=== PATIENT | male | born 1930 | race Caucasian/White ===

== ENCOUNTER 2017-09-15 05:27 | Observation (INO) | payer MEDICARE, BC ==
[2017-09-15] MEDS ORDERED: Nitroglycerin 2% Ointment 1 INCH/1 GM Packet ONE (05:53)
[2017-09-15 05:55] LABS: #Basophils 0.1 thou/uL (0.0-0.2); #Eosinphils 0.3 thou/uL (0.0-0.7); #Lymphocytes 2.1 thou/uL (1.20-3.40); #Monocytes 0.7 thou/uL (0.11-0.59); #Neutrophils 3.5 thou/uL (1.40-6.50); %Eosinophils 4.4 % (0.0-10.0); %Lymphocytes 31.3 % (21.0-51.0); %Monocytes 10.2 % (0.0-10.0); %Neutrophils 53.1 % (42.0-75.0); Hemoglobin 9.9 g/dL (14.0-18.0); Mean Corpuscular Hemoglobin 26.3 pg (27.0-31.0); Mean Platelet Volume 7.1 fL (7.4-10.4); Platelet Count 184 thou/uL (130-400); Red Blood Cell (RBC) Count 3.76 mill/uL (4.70-6.10); White Blood Cell (WBC) Count 6.6 thou/uL (4.8-10.8)
[2017-09-15 06:08] LABS: ALT (SGPT) 12 U/L (8-55); AST (SGOT) 12 U/L (5-34); Albumin 3.5 g/dL (3.4-4.8); Alkaline Phosphatase 95 U/L (40-150); Anion Gap 14 mmol/L (10-20); BUN (Urea Nitrogen) 23 mg/dL (8.4-25.7); Bilirubin, Total 0.3 mg/dL (0.2-1.2); CK (CPK) 41 U/L (30-200); Calc. Creatinine Clearance 0 mL/min (70-130); Calcium 8.9 mg/dL (7.8-10.44); Carbon Dioxide 22 mmol/L (23-31); Chloride 112 mmol/L (98-107); Estimated GFR-MDRD 54; Globulin 2.9 g/dL (2.4-3.5); Glucose 82 mg/dL (83-110); Potassium 4.3 mmol/L (3.5-5.1); Protein, Total 6.4 g/dL (5.8-8.1); Sodium 144 mmol/L (136-145)
[2017-09-15 06:10] LABS: CKMB 1.8 ng/mL (0-6.6); Troponin I 0.017 ng/mL (< 0.028)
--- NOTE | 2017-09-15 08:05 | RAD ---
RADIOGRAPH CHEST 1 VIEW: Date: 09/15/17. Time: 6:06 A.M. HISTORY: An 87-year-old male with acute chest pain. COMPARISON: 09/05/15. FINDINGS: Mild or borderline cardiomegaly. Prominent interstitial markings diffusely, apparently new since the prior study. No consolidation or pneumothorax. IMPRESSION: Prominent interstitial markings. JN [] POS: OFF
[2017-09-15 08:07] VITALS: BMI 24.6
[2017-09-15] MEDS ORDERED: ADENOSINE 60 MG/20 ML VIAL ONE (08:15)
[2017-09-15] MEDS ORDERED: Acetaminophen 325 MG TAB PO PRN (08:24)
[2017-09-15 09:22] LABS: Cardiac Risk 2.7 (Less than 4.5)
[2017-09-15 09:27] LABS: Troponin I 0.017 ng/mL (< 0.028)
[2017-09-15] MEDS ORDERED: cloNIDine 0.1 MG TAB PO PRN (10:51)
[2017-09-15] MEDS ORDERED: Ondansetron ODT 4 MG TAB PO PRN (10:51)
[2017-09-15] MEDS ORDERED: hydrALAZINE 20 MG/ML VIAL SLOW IVP PRN (10:51)
[2017-09-15] MEDS ORDERED: HumaLOG 300 UNITS/3 ML VIAL SC PRN ×2 (10:51)
[2017-09-15] MEDS ORDERED: Ondansetron HCl/PF 4 MG/2 ML Vial IVP PRN (10:51)
[2017-09-15] MEDS ORDERED: Dextrose 50% Abboject 50 ML SYRINGE SLOW IVP PRN (10:51)
[2017-09-15] MEDS ORDERED: Dextrose 5% in Water 1,000 ML IV PRN (10:51)
[2017-09-15] MEDS ORDERED: Acetaminophen 500 MG TAB PO PRN (10:51)
[2017-09-15] MEDS ORDERED: Nitroglycerin 2% Ointment 1 INCH/1 GM Packet TOP SCH (14:00)
--- NOTE | 2017-09-15 14:23 | HP ---
DATE OF ADMISSION: 09/15/2017 PRIMARY CARE PROVIDER: Dr. Anton Rivera. CHIEF COMPLAINT: Right-sided chest pain. HISTORY OF PRESENT ILLNESS: This is an 87-year-old male who presented to [facility] [place] [facility] complaining of right lower chest pain approximately occurring on 2 separate episodes lasting a few seconds and resolving spontaneously. The patient states the most recent epis ode occurred approximately 4:00 a.m., waking him up from sleep on the right lower chest and rib area. The patient denied any recent trauma, injury, increased cough, congestion, fever, change to bowel h abits or recent procedures. The patient became concerned when this lasted for 1-2 hours chewing 4 ba by aspirin and presented to the emergency room for evaluation. The patient became concerned when he states he had similar symptoms approximately 3-4 years prior to this evaluation at which point he und erwent cardiac evaluation and subsequent cardiac stent placement. The patient states he has been doi ng well at home, taking his routine chronic medications with a recent addition of gabapentin for nerv e pain and low back discomfort. The patient states he has been evaluated at [facility] and placed on a variety of medication regimens mostly unsuccessful. The patient states he star tad the gabapentin within the last 24 hours and noticed the pain in his right lower ribcage as stated previously. The patient states he remains very active in his home residence with daily chores and f arming duties. In the emergency room, patient underwent general evaluation with chest imaging showin g no acute infiltrate. Screening metabolic survey showed troponin negative x2 and patient was placed on topical nitroglycerin and given aspirin 324 mg. The patient currently without chest pain symptom s. PAST MEDICAL HISTORY: 1. Coronary artery disease to left anterior descending, status post cardiac stent placement in 2013. 2. History of atrial fibrillation with current sinus mechanism. 3. Right carotid artery stenosis. 4. Dyslipidemia. 5. Hypertension. 6. Diabetes mellitus type 2. 7. History of squamous cell carcinoma, status post surgical resection. PAST SURGICAL HISTORY: 1. Status post right facial surgery for squamous cell carcinoma. 2. Status post right carotid endarterectomy. 3. Status post cardiac catheterization with drug-eluting stent placement in 2014. 4. Status post right shoulder surgery. CURRENT MEDICATIONS: 1. Aspirin 325 mg 1 tablet p.o. at bedtime. 2. Lipitor 40 mg p.o. at bedtime. 3. Coreg 3.125 mg p.o. b.i.d. 4. Multaq 400 mg p.o. b.i.d. 5. Glipizide XL 2.5 mg p.o. at bedtime. 6. Lisinopril 2.5 mg p.o. at bedtime. 7. Metformin 1000 mg p.o. b.i.d. ALLERGIES: No known drug allergies. FAMILY HISTORY: Positive for coronary artery disease in multiple family members. SOCIAL HISTORY: Patient is , accompanied by his in the hospital. Resides near [place], [place]. No current alcohol, tobacco or illicit drug use. Works on his farm currently. REVIEW OF SYSTEMS: The following complete review of systems was negative, unless otherwise mentioned in the HPI or below: Constitutional: Weight loss or gain, ability to conduct usual activities. Skin: Rash, itching. Eyes: Double vision, pain. ENT/Mouth: Nose bleeding, neck stiffness, pain, tenderness. Cardiovascular: Palpitations, dyspnea on exertion, orthopnea. Respiratory: Shortness of breath, wheezing, cough, hemoptysis, fever or night sweats. Gastrointestinal: Poor appetite, abdominal pain, heartburn, nausea, vomiting, constipation, or diarr hea. Genitourinary: Urgency, frequency, dysuria, nocturia. Musculoskeletal: Pain, swelling. Neurologic/Psychiatric: Anxiety, depression. Allergy/Immunologic: Skin rash, bleeding tendency. Otherwise negative except as stated per HPI. PHYSICAL EXAMINATION: VITAL SIGNS: On admission, blood pressure 132/63, pulse 56, respiratory rate 17, temperature 97.4 de grees Fahrenheit, O2 saturation 93% on room air. GENERAL APPEARANCE: This is an 87-year-old male, alert and oriented x3, pleasant and in no acute distress. HEENT: Pupils are equal, round, and reactive to light and accommodation. Extraocular muscles are in tact. No scleral icterus, no conjunctival injection. Nares patent. OP is clear. NECK: Supple, no cervical adenopathy, no thyromegaly, no carotid bruits, no JVD appreciated. Cervic al spine with full active and passive range of motion. No meningeal signs appreciated. CHEST: Lungs are clear to auscultation bilaterally. CARDIOVASCULAR: S1 and S2 with a harsh holosystolic 2-3/6 murmur loudest at the apex. ABDOMEN: Rounded, soft, nontender, nondistended. Bowel sounds are positive in all four quadrants. No hepatosplenomegaly, no abdominal bruits, no rebound or guarding appreciated. EXTREMITIES: Warm and dry with good turgor. No clubbing, cyanosis or asymmetric edema appreciated. Pulses palpable distally at the dorsalis pedis, posterior tibial and popliteal arteries bilaterally. Capillary refill less than 2 seconds. NEUROLOGIC: Cranial nerves II-XII are grossly intact. No focal or lateralizing signs appreciated. PERTINENT LABORATORY DATA AND X-RAY FINDINGS: Sodium 144, potassium 4.3, chloride 112, CO2 of 22, BU N 23, creatinine 1.26 with estimated GFR of 54, glucose 82, calcium 8.9. LFTs within normal limits. Troponin I negative x2. Albumin 3.5, total cholesterol 94, triglycerides 43, HDL 35, LDL 50, lipase 39. CBC showed white blood cell count 6.6, hemoglobin 10, hematocrit 31, and platelet count of 184 with normal differential. Portable chest x-ray dated 09/15/2017 showed interstitial prominence witho ut acute infiltrate. EKG dated 09/15/2017 by my interpretation shows sinus mechanism with heart rate s in the 60s. Normal R-wave progression noted in the precordial leads. Voltage criteria consistent with left ventricular hypertrophy. Repolarization changes noted in lead V5, V6 and lead [address] No [address]-T wave changes appreciated. ASSESSMENT AND PLAN: 1. Chest pain. Questionable cardiac etiology given right-sided chest pain. We will proceed with Ca rdiolite stress testing to rule out ischemia. Continue aspirin 325 mg p.o. daily. Continue telemetr y monitoring, rule out arrhythmia. 2. Chronic kidney disease stage 3. Avoid nephrotoxic agents and contrast media. Hold metformin and glipizide. Repeat creatinine in the a.m. 3. Hypertension. Resume home regimen to include carvedilol 3.125 mg p.o. b.i.d. after obtaining Car diolite stress testing. 4. Diabetes mellitus type 2, stable currently. Insulin sliding scale for reflexive coverage. Hold glipizide and metformin until taking consistent p.o. intake. 5. Chronic normocytic anemia. Stable. Review of electronic medical record shows similar trend over the last 2 years. No current evidence to suggest acute blood loss. Repeat CBC in the a.m. 6. Prophylaxis. Sequential compression devices while in bed. Pepcid 20 mg p.o. b.i.d. 7. Code status is FULL. Surrogate medical decision maker is patient's spouse.
[2017-09-15 16:52] VITALS: BP 137/63; TEMP 97.7
[2017-09-15] MEDS ORDERED: Dronedarone HCl 400 MG TAB PO SCH (17:00)
--- NOTE | 2017-09-15 17:25 | NM ---
NUCLEAR MEDICINE CARDIAC PERFUSION EXAMINATION WITH EJECTION FRACTION 09/15/17 HISTORY: 87-year-old male with chest pain and history of coronary artery disease. COMPARISON: 09/06/15 TECHNIQUE: A two day nuclear medicine cardiac perfusion examination was performed. Rest images were obtained usi ng 11 millicuries of technetium 99m Sestamibi. Stress images were obtained using 27 millicuries of te chnetium 99m Sestamibi and adenosine. FINDINGS: Tomographic images show no fixed or reversible perfusion defects. Gaited images show normal wall jesse on with ejection fraction of 61%. EDV is 96 mL. LHR is 0.8. TID is 1.2. IMPRESSION: No evidence of ischemia. POS: [facility]
[2017-09-15] MEDS ORDERED: Atorvastatin Calcium 40 MG TAB PO SCH (21:00)
[2017-09-15] MEDS ORDERED: Lisinopril 2.5 MG TAB PO SCH (21:00)
--- NOTE | 2017-09-16 01:27 | DIS ---
DATE OF ADMISSION: 09/15/2017 DATE OF DISCHARGE: 09/15/2017 DISCHARGE DIAGNOSES: 1. Chest wall pain, non-cardiac. 2. Chronic kidney disease, stage 3, stable. 3. Hypertension, stable. 4. Diabetes mellitus type 2, on oral hypoglycemic, stable. 5. Chronic normocytic anemia, stable. CONSULTATIONS: None. PERTINENT LABORATORY AND X-RAY FINDINGS: Creatinine 1.26 with estimated GFR of 54. LFTs are within normal limits. Troponin I negative x2. Total cholesterol 94, triglycerides 43, HDL 35, LDL 50, lipa se 39. CBC showed hemoglobin of 10, hematocrit 31, platelet count 184. Portable chest x-ray dated 0 09/15/2017 showed no acute cardiopulmonary process. Cardiolite stress test dated 09/15/2017 showed no evidence of reversible or fixed ischemia with calculated ejection fraction of 61%. HOSPITAL COURSE: The patient was observed on the telemetry unit after initial presentation for right -sided chest wall pain. The patient underwent a general cardiac workup including serial troponin I n egative x2. The patient proceeded with Cardiolite stress testing showing no evidence for reversible or fixed ischemia with calculated ejection fraction of 61%. The patient overall remained clinically stable through the remainder the hospital course with telemetry monitoring showing no evidence of acu te arrhythmia or dysrhythmia. The patient is clinically stable and ready for discharge on 09/15/2017 . DISCHARGE MEDICATIONS: 1. Aspirin 325 mg 1 tablet p.o. at bedtime. 2. Lipitor 40 mg p.o. at bedtime. 3. Coreg 3.125 mg p.o. b.i.d. 4. Multaq 400 mg p.o. b.i.d. 5. Glucotrol-XL 2.5 mg p.o. at bedtime. 6. Lisinopril 2.5 mg p.o. at bedtime. 7. Metformin 1000 mg p.o. b.i.d. 8. Avodart 0.5 mg daily. FOLLOWUP: The patient may follow up with his primary care provider, Dr. Anton Rivera within 7 days of discharge. CONDITION ON DISCHARGE: Stable. ACTIVITY: Ad laurita. DIET: Heart healthy and ADA. CODE STATUS: FULL. DISPOSITION: Home on 09/15/2017.
[2017-09-16] MEDS ORDERED: Famotidine 20 MG TAB PO SCH (09:00)
[2017-09-16] MEDS ORDERED: Aspirin 325 mg Enteric Coated Tablet PO SCH (09:00)
[2017-09-16] MEDS ORDERED: Aspirin 325 MG TAB PO SCH (09:00)
--- NOTE | 2017-10-14 15:29 | EKG ---
Test Reason : Blood Pressure : / mmHG Vent. Rate : 064 BPM Atrial Rate : 064 BPM P-R Int : 190 ms QRS Dur : 086 ms QT Int : 392 ms P-R-T Axes : 045 -24 121 degrees QTc Int : 404 ms Normal sinus rhythm Left ventricular hypertrophy with repolarization abnormality Abnormal ECG Confirmed by VIVIANA MURPHY, CALVIN ([id number]), market editor BRIGITTE OROZCO ([id number]) on 10/14/2017 3:29:08 PM Referred By: Confirmed By:CALVIN MICHELLE MD
--- NOTE | 2017-12-15 21:07 | STRESS ---
Acquisition Time: 2017-09-15 15:02:15 Total Exercise Time: 00:04:00 Test Indications: CHEST PAIN Medications: Protocol: ADENOSINE Max HR: 085 BPM 63% of Pred: 133 BPM Max BP: 140/060 mmHG Max Work Load: 1.0 METS RESTING ECG: SINUS BRADYCARDIA AT [address]PM WITH NON-SPECIFIC ST SEGMENT AND T-WAVE CHANGES SYMPTOMS: NONE NORMAL BP RESPONSE ECTOPY: NONE ECG STRESS: NO SIGNIFICANT CHANGES INTERPRETATION: INDETERMINATE ECG/AWAIT NUCLEAR IMAGES FOR DEFINITIVE DIAGNOSIS Confirmed by SHEREEN GUEVARA MD ([id number]) on 12/15/2017 9:06:46 PM Referred By: MD Meagan KINGSLEY Confirmed By:SHEREEN GUEVARA MD
== END 2017-09-15 19:11 | disposition home or self-care (01) ==
LOC: SCSER 05:27 → 2SW 07:50
PROVIDERS: ADMIT Internal Medicine; ATTEND Internal Medicine
DX: R07.89 Other chest pain (principal); E11.22 Type 2 diabetes mellitus with diabetic chronic kidney disease; I12.9 Hypertensive chronic kidney disease with stage 1 through stage 4 chronic kidney disease, or unspecified chronic kidney disease; N18.3 Chronic kidney disease, stage 3 (moderate); D64.9 Anemia, unspecified; I25.10 Atherosclerotic heart disease of native coronary artery without angina pectoris; I48.91 Unspecified atrial fibrillation; E78.5 Hyperlipidemia, unspecified; Z79.84 Long term (current) use of oral hypoglycemic drugs; Z79.82 Long term (current) use of aspirin; Z79.899 Other long term (current) drug therapy; Z98.890 Other specified postprocedural states; Z87.891 Personal history of nicotine dependence
CPT/HCPCS: 71045; 78452; 80053; 80061; 82550; 82553; 82962; 83690; 84484 ×2; 85025; 93005; 93017; 99285; A9500; G0378; 36415; 36416; J0153

== ENCOUNTER 2017-09-24 12:32 | Emergency (ER) | payer MEDICARE, BC ==
[2017-09-24 13:04] LABS: #Basophils 0.1 thou/uL (0.0-0.2); #Eosinphils 0.4 thou/uL (0.0-0.7); #Lymphocytes 1.7 thou/uL (1.20-3.40); #Monocytes 0.7 thou/uL (0.11-0.59); #Neutrophils 4.6 thou/uL (1.40-6.50); %Basophils 0.9 % (0.0-1.0); %Lymphocytes 22.5 % (21.0-51.0); %Monocytes 9.1 % (0.0-10.0); %Neutrophils 62.4 % (42.0-75.0); Hemoglobin 9.1 g/dL (14.0-18.0); Mean Corpuscular HGB CONC 31.5 g/dL (32.0-36.0); Mean Corpuscular Hemoglobin 25.6 pg (27.0-31.0); Mean Platelet Volume 7.4 fL (7.4-10.4); Platelet Count 188 thou/uL (130-400); RBC Distribution Width 14.1 % (11.5-14.5); Red Blood Cell (RBC) Count 3.56 mill/uL (4.70-6.10); White Blood Cell (WBC) Count 7.4 thou/uL (4.8-10.8)
[2017-09-24] MEDS ORDERED: Albuterol Sulfate 2.5 mg/0.5 ml Neb ONE (13:18)
[2017-09-24 13:22] LABS: ALT (SGPT) 14 U/L (8-55); AST (SGOT) 13 U/L (5-34); Albumin 3.6 g/dL (3.4-4.8); Alkaline Phosphatase 81 U/L (40-150); Anion Gap 14 mmol/L (10-20); BUN (Urea Nitrogen) 15 mg/dL (8.4-25.7); Bilirubin, Total 0.4 mg/dL (0.2-1.2); CK (CPK) 41 U/L (30-200); Calc. Creatinine Clearance 0 mL/min (70-130); Calcium 8.7 mg/dL (7.8-10.44); Carbon Dioxide 23 mmol/L (23-31); Chloride 109 mmol/L (98-107); Estimated GFR-MDRD 60; Globulin 2.8 g/dL (2.4-3.5); Glucose 131 mg/dL (83-110); Potassium 4.4 mmol/L (3.5-5.1); Protein, Total 6.4 g/dL (5.8-8.1); Sodium 142 mmol/L (136-145)
[2017-09-24 13:23] LABS: Troponin I Less than 0.010 ng/mL (< 0.028)
--- NOTE | 2017-09-24 14:55 | CT ---
CTA OF THE CHEST WITH CONTRAST: Comparison: 07-20-14 History: Shortness of breath, dyspnea on exertion. Technique: Multiple contiguous axial images were obtained in a CT of the chest with contrast per pul onary embolism protocol. 3D oblique MIP reformats and direct coronal reformats were performed. FINDINGS: The pulmonary arteries are well opacified without filling defect to suggest pulmonary emboli. The hea rt is normal in size without focal cardiac abnormality. Calcifications are seen in the coronary arter ies and aorta. No hilar or mediastinal lymphadenopathy are seen. No pneumothorax or pleural effusion are seen. No focal infiltrates are seen in the lungs. Mild atelec tasis is seen in the lung bases. No suspicious pulmonary nodule is seen. The visualized subdiaphragmatic structures are unremarkable. Degenerative changes are seen in the spi ne. The chest wall soft tissues are unremarkable. IMPRESSION: No evidence of pulmonary thromboembolism. POS: [facility]
== END 2017-09-24 15:06 | disposition home or self-care (01) ==
LOC: SCSER 12:32
DX: D64.9 Anemia, unspecified (principal); R06.09 Other forms of dyspnea; I48.91 Unspecified atrial fibrillation; E11.9 Type 2 diabetes mellitus without complications; E78.5 Hyperlipidemia, unspecified; Z79.899 Other long term (current) drug therapy; Z79.84 Long term (current) use of oral hypoglycemic drugs
CPT/HCPCS: 71275; 80053; 82274; 82553; 83880; 84484; 85025; 93005; J7611

== ENCOUNTER 2018-04-26 12:37 | Outpatient (CLI) | payer MEDICARE, BC ==
--- NOTE | 2018-04-26 15:38 | MRI ---
MRI OF LUMBAR SPINE WITHOUT CONTRAST 04/26/18 HISTORY: Lumbar disc degeneration. Three years of low back pain. COMPARISON: None. TECHNIQUE: MRI of lumbar spine is performed without intravenous gadolinium administration. Multisequential, mult iplanar imaging is performed. FINDINGS: Appropriate T1 marrow signal intensity of the lumbar vertebrae. Slight heterogeneity suggests senesce nt change. Vertebral body height is maintained. No fracture. No significant STIR hyperintensity to liao ggest vertebral body edema or ligamentous injury. Symmetric signal intensity of the psoas muscles. Appropriate signal intensity of the visualized solid organs. The conus medullaris terminates at the T12-L1 disc space level. T12-L1: Adequate disc hydration. No significant central canal stenosis or foraminal narrowing. L1-L2: Adequate disc hydration. No significant central canal stenosis or foraminal narrowing L2-L3: Moderate loss of disc space height. Generalized disc bulge, ligamentum flavum thickening and f acet hypertrophy result in mild central canal stenosis. Right neural foramen is patent. Mild left yovana ral foraminal narrowing. L3-L4: Mild loss of disc space height. Generalized disc bulge, ligamentum flavum thickening and facet hypertrophy does not cause any significant stenosis of the thecal sac. However, there is narrowing o f both subarticular zones, left greater than right. There is partial obscuration of bilateral stella ing L4 nerve roots. Mild bilateral facet hypertrophy. Right neural foramen is patent. Mild left fora mar narrowing. L4-L5: Desiccation with mild loss of disc space height. Generalized disc bulge, ligamentum flavum th ickening and facet hypertrophy does not cause any significant mass effect upon the thecal sac. Disc m aterial encroaches upon and abuts bilateral traversing L5 nerve roots. Moderate right and mild left n eural foraminal narrowing. L5-S1: Desiccation with moderate to severe loss of disc space height. Generalized disc abuts the vent ral thecal sac without significant stenosis. Disc material is noted in both subarticular zones and ab uts but does not surround the traversing S1 nerve root. Moderate bilateral foraminal narrowing. IMPRESSION: Degenerative changes of the lumbar spine as above. POS: [facility]
== END 2018-04-26 12:38 | disposition home or self-care (01) ==
LOC: TBSIIMAG 12:37
PROVIDERS: ATTEND Neurological Surgery
DX: M51.36 Other intervertebral disc degeneration, lumbar region (principal); M47.896 Other spondylosis, lumbar region
CPT/HCPCS: 72148

== ENCOUNTER 2018-11-08 08:46 | Outpatient (CLI) | payer MEDICARE, BC ==
--- NOTE | 2018-11-08 10:26 | ULT ---
GALLBLADDER ULTRASOUND: History: Right upper quadrant pain. FINDINGS: Real-time imaging of the right upper quadrant was performed. This shows a normal appearing gallbladde r. The common duct is 3-4 mm. Technologist reports a negative ultrasound Allred's sign. Liver measure s 16 cm in length and shows no focal masses. Right kidney is normal in size and not obstructed. The pancreas is obscured. IMPRESSION: Unremarkable gallbladder ultrasound. POS: [facility]
== END 2018-11-08 08:47 | disposition home or self-care (01) ==
LOC: SCSULT 08:46
PROVIDERS: ATTEND Family Medicine
DX: R10.11 Right upper quadrant pain (principal)
CPT/HCPCS: 76705

== ENCOUNTER 2020-03-22 08:53 | Observation (INO) | payer MEDICARE, BC ==
[2020-03-22 09:18] LABS: #Eosinphils 1.1 thou/uL (0.0-0.7); #Lymphocytes 1.7 thou/uL (1.20-3.40); #Monocytes 0.5 thou/uL (0.11-0.59); #Neutrophils 4.3 thou/uL (1.40-6.50); %Basophils 0.6 % (0.0-1.0); %Eosinophils 14.7 % (0.0-10.0); %Lymphocytes 22.6 % (21.0-51.0); %Monocytes 6.1 % (0.0-10.0); Hemoglobin 12.5 g/dL (14.0-18.0); Mean Corpuscular HGB CONC 32.6 g/dL (32.0-36.0); Mean Corpuscular Hemoglobin 31.2 pg (27.0-31.0); Mean Corpuscular Volume 95.4 fL (78.0-98.0); Platelet Count 127 thou/uL (130-400); RBC Distribution Width 13.3 % (11.5-14.5); White Blood Cell (WBC) Count 7.7 thou/uL (4.8-10.8)
[2020-03-22 09:37] LABS: ALT (SGPT) 13 U/L (8-55); AST (SGOT) 15 U/L (5-34); Albumin 3.7 g/dL (3.4-4.8); Alkaline Phosphatase 96 U/L (40-110); Anion Gap 12 mmol/L (10-20); BUN (Urea Nitrogen) 21 mg/dL (8.4-25.7); Bilirubin, Total 0.4 mg/dL (0.2-1.2); CK (CPK) 38 U/L (30-200); Calc. Creatinine Clearance 0 mL/min (70-130); Calcium 8.9 mg/dL (7.8-10.44); Carbon Dioxide 24 mmol/L (23-31); Chloride 109 mmol/L (98-107); Estimated GFR-MDRD 58; Globulin 3.1 g/dL (2.4-3.5); Glucose 112 mg/dL (83-110); Potassium 5.4 mmol/L (3.5-5.1); Protein, Total 6.8 g/dL (5.8-8.1); Sodium 140 mmol/L (136-145)
[2020-03-22] MEDS ORDERED: Aspirin Chewable 81 MG TAB ONE (09:40)
--- NOTE | 2020-03-22 09:53 | RAD ---
EXAM: Single view of the chest HISTORY: Chest pain COMPARISON: 09/15/2017 FINDINGS: Single view of the chest shows a normal sized cardiomediastinal silhouette. There is no dawson dence of consolidation, mass, or pleural effusion. Degenerative changes are seen in the spine. IMPRESSION: No evidence of acute cardiopulmonary disease
--- NOTE | 2020-03-22 10:10 | CT ---
CT BRAIN WITHOUT CONTRAST: HISTORY: Right carotid artery occlusion. COMPARISON: None. FINDINGS: There are changes of chronic small vessel ischemic disease in the periventricular white matter. The v entricular size is appropriate and the basilar cisterns are patent. No evidence of acute infarct, hemorrhage, midline shift or abnormal extraaxial fluid collections is s een. The bony calvarium is intact. There is minimal mucosal disease in the right posterior ethmoid ai r cells. IMPRESSION: No CT evidence of acute intracranial process. POS: [facility]
--- NOTE | 2020-03-22 10:14 | CT ---
EXAM: CTA neck with contrast HISTORY: Chest pain radiating into the left neck that started this morning. Hypertension COMPARISON: None TECHNIQUE: Multiple contiguous axial images were obtained and a CTA of the neck with contrast. 3-D sagittal and coronal MIP reformats were performed. FINDINGS: CTA NECK: Aortic arch: Normal origin of the carotid arteries from the arch. No significant atherosclerotic dise ase of the subclavian arteries. No dissection of the aortic arch. Right common carotid artery: No significant atherosclerotic disease or narrowing Left common carotid artery: No significant atherosclerotic disease or narrowing Right internal carotid artery: Postsurgical clips are seen adjacent to the right internal carotid art reginaldo. No significant atherosclerotic disease or narrowing per NASCET criteria. No dissection. Right external carotid artery: No significant atherosclerotic disease or narrowing Left internal carotid artery: Moderate proximal atherosclerotic disease with approximately 25% stenos is per NASCET criteria. No dissection. Left external carotid artery: No significant atherosclerotic disease or narrowing Right cervical vertebral artery: No significant atherosclerotic disease or narrowing Left cervical vertebral artery: No significant atherosclerotic disease or narrowing No cervical adenopathy. The lung apices are unremarkable. Degenerative changes are seen in the spine. IMPRESSION: Mild atherosclerotic disease surrounding the left carotid bifurcation without evidence of dissection .
--- NOTE | 2020-03-22 11:27 | PDOC.HHP ---
Hospitalist HPI - History of Present Illness Chest pain History of Present Illness: PCP: Dr. Rivera Human Machine Interface Engineer: Dr. Winston The patient is an 89-year-old male with PMH significant for Paroxsymal Afib (on aspirin), TAVR (2018), right carotid endarterectomy, HTN, HLD, and DMII presents to the emergency department chief complaint of acute onset of left shoulder pain, onset prior to EMS arrival, described as chest pressure, stating "it hurt", exacerbated by nothing and relieved by SL nitro x 1. He denies ever having this type of pain before. Denies any associated heart palpitations, lower extremity swelling, SOB or cough. Denies any recent fever, chills, or recent travel or immobilization. No history of DVT/PE, COPD or asthma. Denies any illicit drug usage. EMS found him with elevated blood pressure and bradycardic, he apparently did not take his morning BB, so EMS administerd 10 mg of labetalol for his high blood pressure. His symptoms resolved during transport with EMS. ED Course: VITAL SIGNS Sun Mar 22, 2020 09:02 BP: 170/59, Pulse: 53, Resp: 19, Temp: 97.6 (Oral), Pain: 1, O2 sat: 100 on ( Room Air), Time: 03/22/2020 09:02. Drug Name Dose Ordered Route Status Time aspirin oral 324 mg Oral Given 09:42 03/22/[address] elevations trop 0.021, CK 38 , CXR no acute process CT brain and CTA head and neck no acute process Given full dose ASA. Hospitalist ROS - Review of Systems Respiratory: denies: cough, dry, shortness of breath, hemoptysis, SOB with excertion, pleuritic pain, sputum, wheezing, other Cardiovascular: denies: chest pain, palpitations, orthopnea, paroxysmal noc. dyspnea, edema, light headedness, other Gastrointestinal: denies: nausea, vomiting, abdominal pain, diarrhea, constipation, melena, hematochezia, other Genitourinary: denies: dysuria, frequency, incontinence, hematuria, retention, other All other systems reviewed; all pertinent +/- noted in HPI/Subj Hospitalist History - Past Medical History Source: patient Cardiac: reports: AFIB (paroxysmal), CAD, HTN, Hyperlipidemia, Other Endocrine: reports: Diabetes (type II, non insulin dependent) Other Medical History: Past Medical History Diabetes. Right Carotid artery stenosis. Basal cell carcinoma. Squamous cell carcinoma. Cataracts.. Dyslipidemia. CAD. moderate . Par Atrial fibrillation. BPH HLD Surgical History Resection of basal cell and squamous cell carcinoma. Right carotid artery endarterectomy. Cataract. Colonoscopy: Declines. Diabetic eye exam: Spring 2017. Normal. Diabetic foot exam: 04/07/14. Normal. Right knee meniscus repair. Cardiac stent. 07/22/14 LAD. TAVR 10/10/18 Home Medications Aspirin 325 MG Tablet 1 tablet Orally Once a day GlipiZIDE 5 MG Tablet as directed Orally 5 mg morning 2.5 mg pm Gabapentin 100MG Capsule 1 capsule po qhs for 3 days, then increase to bid thereafter Orally twice a day Lisinopril 10 MG Tablet 1 tablet Orally twice a day Metformin HCl 1000MG Tablet 1 tablets Orally twice a day (bid) Tamsulosin HCl 0.4 MG Capsule 1 capsule Orally Once a day Atorvastatin Calcium 40 mg Tablet 1 tablet Orally Once a day Carvedilol 3.125 MG Tablet 1 tablet Orally Twice a day Family History Father: 88 yrs, family history unknown Mother: 90 yrs, fell & broke her shoulder Social History Former Smoker - quit in , Worked as Retired electronics on a ship. Full code. DPAO - spouse Allergies N.K.D.A. Hospitalist Results - Labs Result Diagrams: 03/22/20 09:05 03/22/20 09:05 Lab results: WBC 7.7 thou/uL (4.8-10.8) 03/22/20 09:05 Hgb 12.5 g/dL (14.0-18.0) L 03/22/20 09:05 Hct 38.2 % (42.0-52.0) L 03/22/20 09:05 MCV 95.4 fL (78.0-98.0) 03/22/20 09:05 Plt Count 127 thou/uL (130-400) L 03/22/20 09:05 Neutrophils % 56.0 % (42.0-75.0) 03/22/20 09:05 Sodium 140 mmol/L (136-145) 03/22/20 09:05 Potassium 5.4 mmol/L (3.5-5.1) H 03/22/20 09:05 Chloride 109 mmol/L (98-107) H 03/22/20 09:05 Carbon Dioxide 24 mmol/L (23-31) 03/22/20 09:05 BUN 21 mg/dL (8.4-25.7) 03/22/20 09:05 Creatinine 1.18 mg/dL (0.7-1.3) 03/22/20 09:05 Glucose 112 mg/dL (83-110) H 03/22/20 09:05 Calcium 8.9 mg/dL (7.8-10.44) 03/22/20 09:05 Total Bilirubin 0.4 mg/dL (0.2-1.2) 03/22/20 09:05 AST 15 U/L (5-34) 03/22/20 09:05 ALT 13 U/L (8-55) 03/22/20 09:05 Alkaline Phosphatase 96 U/L (40-110) 03/22/20 09:05 Creatine Kinase 38 U/L (30-200) 03/22/20 09:05 Troponin I 0.021 ng/mL (< 0.028) 03/22/20 09:05 Serum Total Protein 6.8 g/dL (5.8-8.1) 03/22/20 09:05 Albumin 3.7 g/dL (3.4-4.8) 03/22/20 09:05 Lipase 25 U/L (8-78) 03/22/20 09:05 - EKG Interpretation EKG: SB, LAD, LVH (Reviewed by me) - Radiology Interpretation CT scan - head Status: image reviewed by me Additional Comment: CT BRAIN WITHOUT CONTRAST: HISTORY: Right carotid artery occlusion. COMPARISON: None. FINDINGS: There are changes of chronic small vessel ischemic disease in the periventricular white matter. The v entricular size is appropriate and the basilar cisterns are patent. No evidence of acute infarct, hemorrhage, midline shift or abnormal extraaxial fluid collections is s een. The bony calvarium is intact. There is minimal mucosal disease in the right posterior ethmoid ai r cells. IMPRESSION: No CT evidence of acute intracranial process. Other Status: image reviewed by me Additional Comment: CTA neck with contrast HISTORY: Chest pain radiating into the left neck that started this morning. Hypertension COMPARISON: None TECHNIQUE: Multiple contiguous axial images were obtained and a CTA of the neck with contrast. 3-D sagittal and coronal MIP reformats were performed. FINDINGS: CTA NECK: Aortic arch: Normal origin of the carotid arteries from the arch. No significant atherosclerotic dise ase of the subclavian arteries. No dissection of the aortic arch. Right common carotid artery: No significant atherosclerotic disease or narrowing Left common carotid artery: No significant atherosclerotic disease or narrowing Right internal carotid artery: Postsurgical clips are seen adjacent to the right internal carotid art reginaldo. No significant atherosclerotic disease or narrowing per NASCET criteria. No dissection. Right external carotid artery: No significant atherosclerotic disease or narrowing Left internal carotid artery: Moderate proximal atherosclerotic disease with approximately 25% stenos is per NASCET criteria. No dissection. Left external carotid artery: No significant atherosclerotic disease or narrowing Right cervical vertebral artery: No significant atherosclerotic disease or narrowing Left cervical vertebral artery: No significant atherosclerotic disease or narrowing No cervical adenopathy. The lung apices are unremarkable. Degenerative changes are seen in the spine. IMPRESSION: Mild atherosclerotic disease surrounding the left carotid bifurcation without evidence of dissection Chest x-ray Status: image reviewed by me Additional Comment: EXAM: Single view of the chest HISTORY: Chest pain COMPARISON: 09/15/2017 FINDINGS: Single view of the chest shows a normal sized cardiomediastinal silhouette. There is no dawson dence of consolidation, mass, or pleural effusion. Degenerative changes are seen in the spine. IMPRESSION: No evidence of acute cardiopulmonary disease Hospitalist H&P A/P - Plan Plan: CP - r/o ACS Hyperkalemia -prob due to ACEI -no EKG changes CAD s/p stent Par Atrial fibrillation - on ASA DM2 Dyslipidemia. moderate s/p TAVR BPH HLD Chronic Anemia -prob due to nutritional def CKD 3 Thrombocytopenia Right Carotid artery stenosis. -s/p Right carotid artery endarterectomy. PLAN: Admit to Tele Obs Low potassium diet Serial troponins ASA/Statins/BB Cardiac stress test if troponins are normal due to h/o CAD with stents in the past Hold ACEI due to hyperkalemia AM labs Sliding scale Hold Metformin due to contrast in ER Will d/w Dr Winston in AM Resume Flomax Verify home meds
[2020-03-22] MEDS ORDERED: ADENOSINE 60 MG/20 ML VIAL ONE (11:55)
[2020-03-22 12:36] LABS: Troponin I 0.015 ng/mL (< 0.028)
[2020-03-22] MEDS ORDERED: Dextrose 5% in Water 1,000 ML IV PRN (12:40)
[2020-03-22] MEDS ORDERED: HumaLOG 300 UNITS/3 ML VIAL SC PRN ×2 (12:40)
[2020-03-22] MEDS ORDERED: Dextrose 50% Abboject 50 ML SYRINGE SLOW IVP PRN (12:40)
[2020-03-22] MEDS ORDERED: Acetaminophen 325 MG TAB PO PRN (12:41)
[2020-03-22] MEDS ORDERED: Ondansetron ODT 4 MG TAB PO PRN (12:41)
[2020-03-22] MEDS ORDERED: Senokot S 8.6-50 MG TAB PO PRN (12:41)
[2020-03-22] MEDS ORDERED: Calcium Carbonate 500 MG ChewTAB PO PRN (12:41)
[2020-03-22] MEDS ORDERED: Iopamidol-370 76% 500 ML 1 ML ONE (13:33)
--- NOTE | 2020-03-22 16:13 | NM ---
Radionucleotide stress and rest myocardial perfusion scan with CT attenuation correction and SPECT im aging HISTORY: Chest pain. FINDINGS: Adenosine protocol. Heterogeneous uptake of radiotracer throughout the left ventricular myocardium. Within the lateral wa ll, there is a moderate to large area of only mildly diminished radiotracer uptake on the stress images, were normal uptake is present on the rest images. No other focal perfusion defect or reversibility. QGS analysis of gated SPECT images shows no focal wall motion abnormalities. Ejection fraction calcul ated at 71%. IMPRESSION : Indeterminate exam for ischemia, in that there is an area of mildly diminished uptake and reversibili ty in the upper lateral wall. Please correlate with other findings for circumflex distribution stress ischemia. Preserved left ventricular function.
[2020-03-22 16:19] VITALS: BMI 27.7
[2020-03-22] MEDS: Carvedilol 3.125 MG TAB PO SCH (20:27)
[2020-03-22] MEDS: Nitroglycerin 2% Ointment 1 INCH/1 GM Packet TOP SCH ×2 (20:28→22:42)
[2020-03-22] MEDS ORDERED: Atorvastatin Calcium 40 MG TAB PO SCH (21:00)
[2020-03-22] MEDS ORDERED: Sodium Chloride 0.9% 1,000 ML IV SCH (23:59)
[2020-03-23 04:29] LABS: #Eosinphils 1.4 thou/uL (0.0-0.7); #Lymphocytes 2.2 thou/uL (1.20-3.40); #Monocytes 0.6 thou/uL (0.11-0.59); #Neutrophils 4.7 thou/uL (1.40-6.50); %Basophils 0.5 % (0.0-1.0); %Eosinophils 15.5 % (0.0-10.0); %Lymphocytes 24.4 % (21.0-51.0); %Monocytes 7.1 % (0.0-10.0); %Neutrophils 52.5 % (42.0-75.0); Hemoglobin 12.1 g/dL (14.0-18.0); Mean Corpuscular HGB CONC 31.6 g/dL (32.0-36.0); Mean Corpuscular Hemoglobin 29.7 pg (27.0-31.0); Mean Corpuscular Volume 93.8 fL (78.0-98.0); Mean Platelet Volume 9.6 fL (7.4-10.4); Platelet Count 142 thou/uL (130-400); RBC Distribution Width 13.3 % (11.5-14.5); Red Blood Cell (RBC) Count 4.07 mill/uL (4.70-6.10); White Blood Cell (WBC) Count 8.9 thou/uL (4.8-10.8)
[2020-03-23 05:22] LABS: Anion Gap 12 mmol/L (10-20); BUN (Urea Nitrogen) 23 mg/dL (8.4-25.7); Calc. Creatinine Clearance 51 mL/min (70-130); Calcium 8.8 mg/dL (7.8-10.44); Carbon Dioxide 24 mmol/L (23-31); Chloride 108 mmol/L (98-107); Estimated GFR-MDRD 62; Glucose 91 mg/dL (83-110); Potassium 5.1 mmol/L (3.5-5.1); Sodium 139 mmol/L (136-145)
[2020-03-23] MEDS: Nitroglycerin 2% Ointment 1 INCH/1 GM Packet TOP SCH (06:14)
[2020-03-23 08:24] VITALS: BP 163/72; TEMP 99.4
[2020-03-23] MEDS: Carvedilol 3.125 MG TAB PO SCH (08:25)
[2020-03-23] MEDS ORDERED: Aspirin 325 mg Enteric Coated Tablet PO SCH (09:00)
--- NOTE | 2020-03-23 10:11 | CON ---
DATE OF CONSULTATION: 03/23/2020 INDICATIONS FOR CONSULTATION: An 89-year-old patient who has a history of coronary artery disease, underwent angioplasty and stent placement to the left anterior descending artery, also had a TAVR placed back in September of last year. He presented to the hospital after having pain yesterday morning in his left shoulder. He said he woke up with the pain. It continued. He then eventually presented to the emergency room. His EKG was unremarkable. Cardiac enzymes unremarkable. Unfortunately, he said the pain did improve somewhat after being given nitroglycerin. He had evaluation, did not show any evidence of dissection, or further there were nothing on the EKG that would indicate ischemia. He has remained stable. He has had no further chest pain. At this time, I would agree that he is a reasonable candidate for discharge to home. We can see him back in the office in the next 2 to 4 weeks, actually can give him a call via telephone if we cannot see him in the office due to COVID. PAST MEDICAL HISTORY: Please refer to the notes dictated. However, past medical history is mainly significant for: 1. Angioplasty and stent placed in the left anterior descending artery as well as a TAVR, which was placed in last September. 2. Intermittent atrial fibrillation at times, he has been in sinus rhythm. 3. Hyperlipidemia. 4. Type 2 diabetes. 5. He has had a right carotid endarterectomy. 6. His last echocardiogram showed ejection fraction of 60% to 65%. SOCIAL HISTORY: Please refer to the notes dictated FAMILY HISTORY: Please refer to the notes dictated. PRESENT MEDICATIONS: Prior to admission, included: 1. Coreg 3.125 mg b.i.d. 2. Glipizide 5 mg half a tablet every day. 3. Aspirin 325 mg a day. 4. Metformin 1000 mg b.i.d. 5. Atorvastatin 40 mg a day. 6. Gabapentin 100 mg b.i.d. 7. Multaq 400 mg b.i.d. 8. Tamsulosin HCL 0.4 mg one daily half an hour before the same meal each day. 9. Ferrous sulfate. 10. Iron tablets 325 mg once a day. ALLERGIES: NONE. FAMILY HISTORY: Noncontributory. REVIEW OF SYSTEMS: Twelve-point review of systems is unremarkable. PHYSICAL EXAMINATION: GENERAL: This is a well-developed, well-nourished gentleman. He is in no acute distress at this time. VITAL SIGNS: Blood pressure is 118/60, O2 saturations 100%, heart rate is in the 50s and shows sinus rhythm. HEENT: Unremarkable. NECK: He has a well-healed surgical incision over the carotid area after a carotid endarterectomy on the right side. CHEST: Clear to auscultation. CARDIOVASCULAR: Regular rate and rhythm. He has normal S1 and S2. There is no S3 or S4. There were no significant murmurs, heaves, thrills, bruits, or rubs. There is no significant stenotic murmur over the aortic area. ABDOMEN: Soft and nontender. Positive bowel sounds are present. EXTREMITIES: No clubbing, cyanosis, or edema. NEUROLOGIC: He appears to be fully intact. SKIN: Warm and dry. DIAGNOSTIC STUDIES: EKG shows a sinus rhythm with no acute changes. He does have decreased R-wave progression in V1 and V2 with some voltage criteria, most likely compatible with left ventricular hypertrophy. ASSESSMENT: At this time, he appears to be stable from a cardiac standpoint, does not appear to be that this was an ischemic event or myocardial infarction. The patient can be discharged to home and I will see him back in the next 2 to 4 weeks. IMPRESSION: 1. Left shoulder pain, which is probably noncardiac, most likely musculoskeletal. 2. Intermittent atrial fibrillation, remains in sinus rhythm. 3. Coronary artery disease, which appears to be stable. He had a patent stent. He underwent cardiac catheterization last in 09/2018 and has a patent stent in the left anterior descending artery. 4. Hypertension. This is also stable at this time. 5. Hypercholesterolemia. He will continue his medications. 6. Type 2 diabetes. This will be dealt with by the primary care service. Job ID: [id number]
--- NOTE | 2020-03-23 10:56 | DIS ---
DATE OF ADMISSION: 03/22/2020 DATE OF DISCHARGE: 03/23/2020 PRIMARY CARE PHYSICIAN: Anton Rivera MD DISCHARGE DISPOSITION: Home. FOLLOWUP: 1. Follow up with primary care physician, Dr. Rivera in 1 week. 2. Follow up with Cardiology, Dr. Winston in 2 weeks. Basic metabolic profile after 1 week is recommended, primary care physician advised to follow. DISCHARGE MEDICATION: 1. Lisinopril dose was reduced to 10 mg daily. 2. Amlodipine 5 mg daily was added. 3. All other home medications were left unchanged. The patient was seen and examined on the day of discharge. Denies any new complaints. No chest pain, shortness of breath, or palpitations reported. BRIEF HOSPITAL COURSE: The patient is an 89-year-old male with paroxysmal atrial fibrillation, coronary artery disease, hypertension, and diabetes mellitus type 2, presented to the emergency room with chest discomfort. Please refer to the history and physical for further details. The patient was admitted to the hospital with a diagnosis of chest discomfort rule out acute coronary syndrome. Serial troponins were negative. The patient underwent a Cardiolite stress test that showed questionable area of mildly diminished uptake and reversibility in the upper lateral wall. The patient was evaluated by Cardiology Dr. Winston today. Dr. Winston felt that his chest pain is atypical. The patient has been cleared by Dr. Winston for discharge. The patient was also found to have hyperkalemia with potassium of 5.4. His potassium improved to 5.1 after holding lisinopril. He will be started on lisinopril 10 mg daily instead of twice daily. Amlodipine 5 mg was added. Repeat basic metabolic profile after 1 week, it will be beneficial. FINAL DIAGNOSES: 1. Chest discomfort, acute coronary syndrome ruled out. 2. Coronary artery disease status post stent placement. 3. Hyperkalemia, resolved. 4. Paroxysmal atrial fibrillation. 5. Diabetes mellitus type 2. 6. Dyslipidemia. 7. Moderate aortic stenosis status post transcatheter aortic valve replacement. 8. Benign prostatic hypertrophy. 9. Hyperlipidemia. 10. Chronic anemia probably due to nutritional deficiency. 11. Chronic kidney disease, stage 3. 12. Thrombocytopenia. 13. History of right carotid artery stenosis, status post carotid endarterectomy. 14. The patient understands the above plan of care and appears stable for discharge. Job ID: [id number]
== END 2020-03-23 10:58 | disposition home or self-care (01) ==
LOC: ERS 08:53 → ERHOLD 11:47 → 2NO 14:09
PROVIDERS: ADMIT Internal Medicine; ATTEND Internal Medicine
DX: R07.89 Other chest pain (principal); I25.10 Atherosclerotic heart disease of native coronary artery without angina pectoris; E87.5 Hyperkalemia; I48.0 Paroxysmal atrial fibrillation; I12.9 Hypertensive chronic kidney disease with stage 1 through stage 4 chronic kidney disease, or unspecified chronic kidney disease; E11.22 Type 2 diabetes mellitus with diabetic chronic kidney disease; N18.3 Chronic kidney disease, stage 3 (moderate); D63.1 Anemia in chronic kidney disease; E78.5 Hyperlipidemia, unspecified; I35.0 Nonrheumatic aortic (valve) stenosis; N40.0 Benign prostatic hyperplasia without lower urinary tract symptoms; I65.22 Occlusion and stenosis of left carotid artery; D69.6 Thrombocytopenia, unspecified; Z87.891 Personal history of nicotine dependence; Z79.82 Long term (current) use of aspirin; Z79.84 Long term (current) use of oral hypoglycemic drugs; Z79.899 Other long term (current) drug therapy; Z95.2 Presence of prosthetic heart valve; Z95.5 Presence of coronary angioplasty implant and graft
CPT/HCPCS: 70450; 70498; 71045; 78452; 80048; 80053; 82550; 82962 ×2; 83690; 83735; 84484 ×2; 85025 ×2; 93005; 93017; 94760 ×3; 99285; A9500; 36415; 36416; 96360; 96361; G0378; J0153; Q9967